=== PATIENT | male | born 1965 | race Caucasian/White ===

== ENCOUNTER 2019-04-28 14:34 | Outpatient (REF) | payer BC, SELFPAY ==
[2019-04-28 19:33] LABS: Uric Acid 3.2 mg/dL (3.5-7.2)
[2019-04-28 20:05] LABS: ESR 4 mm/hr (1-20)
[2019-04-30 09:04] LABS: CRP, High Sensitivity 7.07 mg/L (See Note)
== END 2019-04-28 14:54 ==
LOC: NCHCN 14:34
PROVIDERS: PCP Nurse Practitioner; Visit Provider Nurse Practitioner
DX: M25.522 Pain in left elbow (principal)
CPT/HCPCS: 85652; 86141; 84550

== ENCOUNTER 2019-10-29 08:16 | Outpatient (REF) | payer MEDICAID, SELFPAY ==
[2019-10-29 11:11] LABS: ALT 25 U/L (16-63); AST 23 U/L (15-37); Albumin 4.1 g/dL (3.4-5.0); Alkaline Phosphatase 73 U/L (46-116); Anion Gap 9.9 mmol/L (3-11); BUN 15 mg/dL (7-18); Bilirubin, Total 0.4 mg/dL (0.2-1.0); CO2 24.1 mmol/L (21.0-32.0); CREATININE 0.84 mg/dL (0.70-1.30); Calcium 9.4 mg/dL (8.5-10.1); Calculated LDL 163 mg/dL (<100); Chloride 104 mmol/L (98-107); Cholesterol 222 mg/dL (<200); Glucose 102 mg/dL (74-106); HDL Cholesterol 40 mg/dL (40-60); Potassium 4.6 mmol/L (3.5-5.1); Sodium 138 mmol/L (136-145); Total Protein 6.5 g/dL (6.4-8.2); Triglyceride 96 mg/dL (<150)
== END 2019-10-29 08:36 ==
LOC: NCHCN 08:16
PROVIDERS: PCP Nurse Practitioner; Visit Provider Nurse Practitioner
DX: I10 Essential (primary) hypertension (principal)
CPT/HCPCS: 80053; 80061

== ENCOUNTER 2020-12-29 12:08 | Outpatient (REF) | payer MEDICAID, SELFPAY ==
[2020-12-29 14:28] LABS: ALT 40 U/L (16-63); AST 31 U/L (15-37); Alkaline Phosphatase 99 U/L (46-116); Anion Gap 10.5 mmol/L (3-11); BUN 18 mg/dL (7-18); Bilirubin, Total 0.4 mg/dL (0.2-1.0); CO2 26.5 mmol/L (21.0-32.0); CREATININE 0.7 mg/dL (0.70-1.30); Calcium 9.4 mg/dL (8.5-10.1); Calculated LDL 104 mg/dL (<100); Chloride 102 mmol/L (98-107); Cholesterol 169 mg/dL (<200); Glucose 103 mg/dL (74-106); HDL Cholesterol 43 mg/dL (40-60); Potassium 4.7 mmol/L (3.5-5.1); Sodium 139 mmol/L (136-145); Total Protein 6.6 g/dL (6.4-8.2); Triglyceride 110 mg/dL (<150)
== END 2020-12-29 12:09 | disposition home or self-care (01) ==
LOC: NCHCN 12:08
PROVIDERS: PCP Nurse Practitioner; Visit Provider Family Medicine
DX: I10 Essential (primary) hypertension (principal); E78.5 Hyperlipidemia, unspecified
CPT/HCPCS: 80053; 80061

== ENCOUNTER → 2021-08-11 01:06 | Outpatient (CLI) | payer MEDICAID, SELFPAY ==
--- NOTE | 2021-08-11 13:00 | DI.CTLCSR_ITS ---
Exam(s) CT CHEST LUNG CANCER SCREEN EXAM: CT CHEST LUNG CANCER SCREEN CLINICAL HISTORY: SMOKING GREATER THAN 40 PACK YEARS, F17.210,screening for lung ca TECHNIQUE: CT examination of the chest was performed utilizing low-dose lung cancer screening protoc ol. COMPARISON: No exams were available for comparison FINDINGS: Images obtained through the upper abdomen show unremarkable appearance of visualized portions of the liver and spleen. There is no mediastinal or hilar adenopathy. Mediastinal vascular structures appear intact by noncon trast criteria. Tracheobronchial tree appears intact. No pleural effusion or pleural-based mass. There appear to be mild diffuse central lobular pulmonary emphysematous changes and there are periphe ral reticular radiodensities seen predominantly in the lung apices. No suspicious pulmonary nodule i dentified.. IMPRESSION: Lung RADS Cat 1 - Negative: No nodules and definitely benign nodules Continue annual screening with LDCT in 12 months. Lung-RADS 1.0 CATEGORIES: Category 0 - Prior chest CT exam(s) being located for comparison. Category 1 - Annual screening in 12 months. No nodules or definitely benign nodules. Category 2 - Annual screening in 12 months. Benign appearance. Nodules with low likelihood of becomin g active cancer. Category 3 - 6-month follow-up. Probably benign. Short-term follow-up suggested. Nodules with low lik elihood of becoming active cancer. Category 4A - 3-month follow-up and CT/PET if >8 mm in size. Suspicious finding. Findings which requi re additional testing. Category 4B - Findings which require additional testing and tissue sampling. Suspicious finding. Category 4X - Category 3 or 4 nodules with additional features or imaging findings that increases the suspicion of malignancy. Modifier S- Potentially clinically significant finding. (Non lung cancer) RADIATION DOSE DELIVERED: 88.94mGy.cm Total DLP !Error CTDIvol 88.94mGy.cm Total DLP !Error CTDIvol RADIATION OPTIMIZATION: All CT scans at this facility use at least one of these dose optimization te chniques: automated exposure control; mA and/or kV adjustment per patient size (includes targeted exa ms where dose is matched to clinical indication); or iterative reconstruction.
== END ==
PROVIDERS: PCP Nurse Practitioner; Visit Provider Nurse Practitioner Family
DX: F17.200 Nicotine dependence, unspecified, uncomplicated (principal); Z13.89 Encounter for screening for other disorder
CPT/HCPCS: 71271

== ENCOUNTER 2022-04-12 15:32 | Outpatient (REF) | payer MEDICAID, SELFPAY ==
[2022-04-12 15:30] LABS: Abs Immature Grans 0.09 10^3/uL (0.0-0.06); Absolute Eosinophil Count 0.53 10^3/uL (0.0-0.7); Absolute Neutrophil Count 8.95 10^3/uL (1.2-6.7); Basophils % 0.8; Eosinophils % 4.1; HCT 46.9 % (40.0-50.0); HGB 15.5 g/dL (13.5-17.5); Immature Grans % 0.7; Lymphocytes % 19.1; MCH 28.9 pg (27.0-33.0); MCV 88 fL (80-95); MPV 10.2 fL (8.0-11.0); Monocytes % 6.5; Neutrophils % 68.8; Platelet Count 461 10^3/uL (130-400); RBC 5.36 10^6/uL (4.36-5.78); RDW 12.9 % (11.8-14.1); RDW-SD 41.3 fL; WBC 13.01 10^3/uL (4.4-10.8)
[2022-04-12 15:33] LABS: Absolute Lymphocyte Count 2.48 10^3/uL (1.2-3.4); Absolute Monocyte Count 0.85 10^3/uL (0.1-0.8)
[2022-04-12 15:44] LABS: ALT 33 U/L (16-63); AST 30 U/L (15-37); Albumin 4.3 g/dL (3.4-5.0); Alkaline Phosphatase 119 U/L (46-116); Anion Gap 8.4 mmol/L (3-11); BUN 15 mg/dL (7-18); Bilirubin, Total 0.4 mg/dL (0.2-1.0); CO2 29.6 mmol/L (21.0-32.0); CREATININE 0.7 mg/dL (0.70-1.30); Calcium 9.4 mg/dL (8.5-10.1); Calculated LDL 100 mg/dL (<100); Chloride 101 mmol/L (98-107); Cholesterol 184 mg/dL (<200); Glucose 106 mg/dL (74-106); HDL Cholesterol 47 mg/dL (40-60); Potassium 4.2 mmol/L (3.5-5.1); Sodium 139 mmol/L (136-145); Total Protein 7.4 g/dL (6.4-8.2); Triglyceride 188 mg/dL (<150)
== END 2022-04-12 15:33 | disposition home or self-care (01) ==
LOC: NCHCN 15:32
PROVIDERS: PCP Nurse Practitioner; Visit Provider Nurse Practitioner Family
DX: Z00.00 Encounter for general adult medical examination without abnormal findings (principal)
CPT/HCPCS: 80053; 80061; 85025

== ENCOUNTER 2022-11-03 10:47 | Outpatient (CLI) | payer MEDICAID, SELFPAY ==
--- NOTE | 2022-11-03 08:45 | DI.RAD_ITS ---
Exam(s) XR FOOT RT COMPLETE EXAM: XR FOOT RT COMPLETE CLINICAL HISTORY: RT FOOT PAIN, M79.671, DENIES INJURY, DIFFUSE ECCHYMOSIS, MOST PAINFUL. TECHNIQUE: 2D digital imaging was performed. Three views. COMPARISON: No exams were available for comparison FINDINGS: BONES: No acute fracture is present. No bony destructive lesion is seen. Plantar calcaneal spur. JOINTS: No dislocation present. SOFT TISSUE: Swelling. No foreign body. IMPRESSION: Soft tissue swelling. No bony abnormality. DATA REPOSITORY: RADIATION DOSE DELIVERED:
== END 2022-11-03 11:07 ==
LOC: DI 10:47
PROVIDERS: PCP Nurse Practitioner Family; Visit Provider Physician Assistant Medical
DX: M79.671 Pain in right foot (principal); R22.41 Localized swelling, mass and lump, right lower limb
CPT/HCPCS: 73630

== ENCOUNTER → 2023-01-15 01:58 | Outpatient (CLI) | payer MEDICAID, SELFPAY ==
--- NOTE | 2023-01-15 | DI.CTLCSR_ITS ---
Exam(s) CT CHEST LUNG CANCER SCREEN EXAM: CT CHEST LUNG CANCER SCREEN CLINICAL HISTORY: SMOKING GREATER THAN 40 PK YEARS F17.210 TECHNIQUE: Imaging Protocol: Axial computed tomography images with coronal and sagittal reformatted images were created and reviewed. Low dose screening protocol. COMPARISON: CT CT CHEST LUNG CANCER SCREEN from 08/11/2021 FINDINGS: Tracheobronchial tree: No bronchiectasis or mucus plugging.. Mediastinum and Andria: No dominant adenopathy or fluid collection. Pulmonary parenchyma: No consolidation or dominant measurable mass. Mild emphysematous changes great er at the lung apices.. Lung Nodules: Calcified nodule medial right lower lobe. Tiny scattered peripheral nodules right uppe r and lower lobes. Pleura: No effusion. No pneumothorax. Heart: The heart is not dilated. Minimal coronary artery calcifications are seen. Aorta: Thoracic aorta non-dilated. Upper abdomen: Unremarkable. Bones: Unremarkable for age. Soft Tissues: Unremarkable. IMPRESSION: No suspicious pulmonary nodules. Lung RADS Cat 2 - Benign Appearance / Behavior: Nodules with a very low likelihood of becoming a clin ically active cancer due to size or lack of growth Lung-RADS 1.0 CATEGORIES: Category 0 - Prior chest CT exam(s) being located for comparison. Category 1 - Annual screening in 12 months. No nodules or definitely benign nodules. Category 2 - Annual screening in 12 months. Benign appearance. Nodules with low likelihood of becomin g active cancer. Category 3 - 6-month follow-up. Probably benign. Short-term follow-up suggested. Nodules with low lik elihood of becoming active cancer. Category 4A - 3-month follow-up and CT/PET if >8 mm in size. Suspicious finding. Findings which requi re additional testing. Category 4B - Findings which require additional testing and tissue sampling. Category 4X - Category 3 or 4 nodules with additional features or imaging findings that increases the suspicion of malignancy. Modifier S- Potentially clinically significant findings (non lung cancer) RADIATION DOSE DELIVERED: 85.74mGy.cm Total DLP DATA REPOSITORY: All CT scans at this facility are submitted to the National Radiology Data Registry (NRDR) Dose Index Registry (DIR) with the [employer] (ACR). RADIATION OPTIMIZATION: All CT scans at this facility use at least one of these dose optimization te chniques: automated exposure control; mA and/or kV adjustment per patient size (includes targeted exa ms where dose is matched to clinical indication); or iterative reconstruction.
== END ==
PROVIDERS: PCP Nurse Practitioner Family; Visit Provider Nurse Practitioner Family
DX: F17.210 Nicotine dependence, cigarettes, uncomplicated (principal); Z12.2 Encounter for screening for malignant neoplasm of respiratory organs
CPT/HCPCS: 71271

== ENCOUNTER 2023-01-16 16:41 | Outpatient (REF) | payer MEDICAID, SELFPAY ==
[2023-01-16 17:30] LABS: Abs Immature Grans 0.03 10^3/uL (0.0-0.06); Absolute Basophil Count 0.12 10^3/uL (0.0-0.2); Absolute Eosinophil Count 0.55 10^3/uL (0.0-0.7); Absolute Lymphocyte Count 2.06 10^3/uL (1.2-3.4); Absolute Monocyte Count 0.62 10^3/uL (0.1-0.8); Absolute Neutrophil Count 5.66 10^3/uL (1.2-6.7); Basophils % 1.3; Eosinophils % 6.1; HCT 43.9 % (40.0-50.0); HGB 14.7 g/dL (13.5-17.5); Immature Grans % 0.3; Lymphocytes % 22.8; MCH 28.8 pg (27.0-33.0); MCHC 33.5 % (32.0-36.0); MCV 86 fL (80-95); MPV 10.2 fL (8.0-11.0); Monocytes % 6.9; Neutrophils % 62.6; Platelet Count 368 10^3/uL (130-400); RBC 5.11 10^6/uL (4.36-5.78); RDW-SD 40.9 fL; WBC 9.04 10^3/uL (4.4-10.8)
[2023-01-16 17:42] LABS: BUN 18 mg/dL (7-18); CREATININE 0.7 mg/dL (0.70-1.30); Calcium 9.8 mg/dL (8.5-10.1); Cholesterol 163 mg/dL (<200); Estimated GFR 108.82 (mL/min/1.73m2); Glucose 119 mg/dL (74-106); HDL Cholesterol 46 mg/dL (40-60); Triglyceride 172 mg/dL (<150)
[2023-01-16 17:43] LABS: ALT 41 U/L (16-63); AST 33 U/L (15-37); Albumin 4.2 g/dL (3.4-5.0); Alkaline Phosphatase 94 U/L (46-116); Anion Gap 10.5 mmol/L (3-11); Bilirubin, Total 0.6 mg/dL (0.2-1.0); CO2 24.5 mmol/L (21.0-32.0); Calculated LDL 83 mg/dL (<100); Chloride 100 mmol/L (98-107); Potassium 3.9 mmol/L (3.5-5.1); Sodium 135 mmol/L (136-145); Total Protein 6.7 g/dL (6.4-8.2)
[2023-01-17 19:18] LABS: PSA, Screening 0.7 ng/mL (<=3.5)
== END 2023-01-16 16:42 | disposition home or self-care (01) ==
LOC: NCHCN 16:41
PROVIDERS: PCP Nurse Practitioner Family; Visit Provider Nurse Practitioner Family
DX: I10 Essential (primary) hypertension (principal); F10.10 Alcohol abuse, uncomplicated; F17.210 Nicotine dependence, cigarettes, uncomplicated; Z12.5 Encounter for screening for malignant neoplasm of prostate; E78.5 Hyperlipidemia, unspecified
CPT/HCPCS: 80053; 80061; 84153; 85025

== ENCOUNTER 2024-01-23 16:18 | Outpatient (REF) | payer BC, SELFPAY ==
--- OUTSIDE RECORDS SUMMARY | 2024-01-23 16:21 | XMS_ITS | Encounter Summary ---
Author Organization [facility] Address [address] [place] [id number] Care Team Providers Care Otr Refrigerated Cdl Truck Driver Name Role Phone Unavailable Primary Care Provider Unavailabl e Encounter Details Date Type Department Care Team (Late st Contact Info) Description 01/17/2023 Lab Requisition [facility] Pathology & Laboratory Medicine - [place] [facility] [address] [place] [address] Outr Resulting Lab, Provider Social History Tobacco Use Types Packs/Day Years Used Date Smoking Tobacco: Never Assessed Interpersonal Safety Answer Date Record ed Physically Hurt Never 03/23/2020 Verbally Threaten Not on file 03/23/2020 Sex and Gender Information Value Date Recorded Sex Assigned at Not on file Gender Identity Not on file Sexual Orientation Not on file documented as of this encounter Plan of Treatment Not on file documented as of this encounter Procedures Procedure Name Priority Date/Time Associated Diagnosis Comments PSA TOTAL, DIAGNOSTIC Routine 01/16/2023 9:55 EDT documented in this encounter Results * PSA TOTAL, DIAGNOSTIC (01/16/2023 9:55 EDT) PSA 0.7 <=3.5 ng/mL 01/17/2023 19:14 EDT [facility] Blood VENOUS BLOOD / Unknown 01/16/2023 9:55 EDT 01/17/2023 17:25 EDT Narrative [facility] - 01/17/2023 19:14 EDT NOTE: Serum PSA concentration should not be interpreted as absolute evidence for the presence or absence of malignant disease. Assayed on Siemens ADVIA Centaur XPT using chemiluminescent technology.??Values obtained by using different assay methods cannot be used interchangeably. Provider Outr Resulting Lab CHEMISTRY & BLOOD GAS ORDERABLES [facility] [address] [place] [address] documented in this encounter Visit Diagnoses Not on filedocumented in this encounter
--- OUTSIDE RECORDS SUMMARY | 2024-01-23 16:21 | XMS_ITS | Referral Summary ---
Author Organization [facility] Address [address] [place] [address] Care Team Providers Care Marketing Representative Name Role Phone Unavailable Primary Care Provider Unavailabl e Social History Tobacco Use Types Packs/Day Years Used Date Smoking Tobacco: Never Assessed Interpersonal Safety Answer Date Record ed Physically Hurt Never 03/23/2020 Verbally Threaten Not on file 03/23/2020 Sex and Gender Information Value Date Recorded Sex Assigned at Not on file Gender Identity Not on file Sexual Orientation Not on file Plan of Treatment Not on file
--- OUTSIDE RECORDS SUMMARY | 2024-01-23 16:21 | XMS_ITS | Encounter Summary ---
Author Organization [facility] [place] [address] Care Team Providers Care Tool Maintenance Worker Name Role Phone Cinthya Quevedo APRN Primary Care Provider [phone]- [phone] Reason for Visit * Reason Comments Skin Check Encounter Details Date Type Department Care Team (Late st Contact Info) Description 07/17/2012 1:45 PM EDT Office Visit Dermatology [address] [place], [place] [id number] Mark Flynn MD [address], [place] [address] Psoriasis (Primary Dx) Social History Tobacco Use Types Packs/Day Years Used Date Smoking Tobacco: Every Day Cigarettes Sex and Gender Information Value Date Recorded Sex Assigned at Not on file Gender Identity Not on file Sexual Orientation Not on file documented as of this encounter Progress Notes * Mark Flynn MD - 07/17/2012 2:18 PM EDT Problem: Skin rash. 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 He moved to this area from [place] at that time with his young daughter. He says the rash is getting worse over time, quite itchy, lots of scaling, and driving him crazy. He has been given topical creams such as triamcinolone, but these have not helped. He states that he is not aware of any family history of psoriasis. The patient is currently using Nizoral 2% shampoo, betamethasone dipropionate lotion for the scalp, and triamcinolone 0.5% cream; he also has ketoconazole cream. While in [place], he was told that he had jock itch, but no topical cream therapy that he was given there really ever worked. Physical examination reveals a pleasant, 46-year-old gentleman with brown eyes and type III/IV Abbott pigmentation who has small but very inflammatory plaques of psoriasis adjacent to the elbows, just below his knees, and present towards his scalp. He also has some inverse involvement on the inguinal folds and on the left shaft of the penis. He has no pitting of the nails. Assessment and Plan: Psoriasis, inverse and classic a. Discussed diagnosis at length and treatment options including phototherapy. b. The patient works in [place], and phototherapy at [facility] would really not be feasible or practical for the patient. c. Discussed the option of methotrexate and also mentioned in passing biologics. We decided to begin methotrexate taking six of the 2.5-mg tablets p.o. each week (15 mg); dispensed #30 with zero refills. d. Return to the clinic in a month for repeat check and with repeat methotrexate labs two or three days prior to that visit. e. Answered multiple patient questions about psoriasis and discussed how potentially this summer with some natural sun tanning we may be able to taper him down and off methotrexate. Discussed need to limit alcohol intake while on methotrexate. f. Patient given a prescription for folate 1 mg to be taken one p.o. daily every day except day of methotrexate dosing; #90 dispensed with three refills. Copy: Cinthya Quevedo A.P.R.N. documented in this encounter Plan of Treatment Not on file documented as of this encounter Visit Diagnoses Diagnosis Psoriasis- Primary Other psoriasis documented in this encounter Care Teams Tool Maintenance Worker Relationship Specialty Start Date End Date Cinthya Quevedo APRN PCP - General 07/05/12 06/25/16 documented as of this encounter
--- OUTSIDE RECORDS SUMMARY | 2024-01-23 16:21 | XMS_ITS | Encounter Summary ---
Author Organization [facility] [place] [address] Care Team Providers Care Orthopedic Radiologic Technologist Name Role Phone Cinthya Quevedo APRN Primary Care Provider [phone]- [phone] Reason for Visit * Reason Comments Follow-up Encounter Details Date Type Department Care Team (Late st Contact Info) Description 08/14/2012 4:30 PM EDT Office Visit Dermatology [address] [place] [address] [address] [place], [place] [id number] Mark Flynn MD [address], [place] [address] Psoriasis (Primary Dx) Social History Tobacco Use Types Packs/Day Years Used Date Smoking Tobacco: Every Day Cigarettes Sex and Gender Information Value Date Recorded Sex Assigned at Not on file Gender Identity Not on file Sexual Orientation Not on file documented as of this encounter Progress Notes * Mark Flynn MD - 08/14/2012 4:53 PM EDT Problem is followup psoriasis status post one month of methotrexate. Neftali follows up and has been tolerating methotrexate well, but he has seen a little bit of a decrease in itching, perhaps a 15 to 20% decrease, and perhaps slight decrease of hyperkeratosis, but otherwise there has not been much improvement beyond that. Physical examination reveals a pleasant 46-year-old gentleman who indeed still has some inflammatory plaques of psoriasis adjacent to his elbows, just below his knees, and present in his scalp. He continues to have inverse involvement along the inguinal folds and along the left shaft of the penis. Assessment and Plan: Psoriasis, inverse and classic. a. Continue methotrexate current dosing, 2.5 mg taking six of these p.o. q.week, 15 mg. #30 were dispensed with one refill. b. Methotrexate labs from 08/12 show elevated cholesterol to 207 and triglycerides to 377. Repeat labs again in one month. Return to clinic in one month, and next labs I will request that they be obtained as fasting labs. c. If methotrexate is not efficacious after two or three months of trial, would recommend that we consider biologics. The patient works in [place], and solar therapy at [facility] would really not be feasible or practical for the patient. d. Continue folate 1 mg p.o. q.day every day except the day of methotrexate dosing. Was given #90 with three refills on 07/17/2012. COPY: Cinthya Quevedo A.P.R.N. documented in this encounter Plan of Treatment Not on file documented as of this encounter Visit Diagnoses Diagnosis Psoriasis- Primary Other psoriasis documented in this encounter Care Teams Orthopedic Radiologic Technologist Relationship Specialty Start Date End Date Cinthya Quevedo APRN PCP - General 07/05/12 06/25/16 documented as of this encounter
--- OUTSIDE RECORDS SUMMARY | 2024-01-23 16:21 | XMS_ITS | Clinical Summary ---
Author Organization [facility] Address [facility] [place] [address] Care Team Providers Care Computer Methods Analyst Name Role Phone Unknown Primary Care Provider Unavailabl e Allergies No known active allergies Medications Medication Sig Dispensed Refills Start Date End Date Status Ketoconazole (NIZORAL A-D) 1 % Sham Apply topically every 3 days. Active folic acid (FOLVITE) 1 mg tablet Take 1 mg by mouth daily. Active methotrexate 2.5 mg tablet Take 15 mg by mouth once a week. Can take without regard to food. Call clinic before/prior to starting medication/script. Active Active Problems Problem Noted Date Diagnosed Date Psoriasis 07/17/2012 Social History Tobacco Use Types Packs/Day Years Used Date Smoking Tobacco: Every Day Cigarettes Sex and Gender Information Value Date Recorded Sex Assigned at Not on file Gender Identity Not on file Sexual Orientation Not on file Plan of Treatment Health Maintenance Due Date Last Done Comments CT Colonography 1967 Colonoscopy 1967 Colorectal Cancer Screening 1967 FIT DNA 1967 FIT 1967 Sigmoidoscopy (10 year) with FIT yearly 1967 Sigmoidoscopy 1967 HIV screen 08/15/1985 Hepatitis C Screening 08/15/1985 Lipid Screening 08/15/1985 Hepatitis B vaccine (0-59 yrs) (1) 08/15/1986 Tetanus/Diphtheria/Pertussis Vaccines (1 - Tdap) 08/15 Zoster vaccine (1 of 2) 08/15/2017 Advance Directive 08/15/2022 Covid-19 Vaccine (1 - 2022-24 season) 2023 Influenza (Flu) vaccine (1 o f 1 - Influenza standard series) 12/30/2023 Care Teams Computer Methods Analyst Relationship Specialty Start Date End Date Unknown None PCP - General 06/26/16
--- OUTSIDE RECORDS SUMMARY | 2024-01-23 16:21 | XMS_ITS | Clinical Summary ---
Author Organization [facility] Address [address] [place] [address] Care Team Providers Care Vacuum Form Operator Name Role Phone Unavailable Primary Care Provider [...] Health Maintenance Due Date Last Done Comments Hepatitis C Screen 1965 Hepatitis B Vaccine (1 of 3 - 19+ 3-dose series) 08/15 COVID-19 Vaccine (2022- season) 2022
--- OUTSIDE RECORDS SUMMARY | 2024-01-23 16:21 | XMS_ITS | Encounter Summary ---
Author Organization [facility] Address [address] [place] [address] Care Team Providers Care Sales Order Administrator Name Role Phone Unavailable Primary Care Provider Unavailabl e Encounter Details Date Type Department Care Team (Late st Contact Info) Description 04/29/2019 Lab Requisition [facility] Pathology & Laboratory Medicine - [facility] [address] [place] [address] Unknown, Provider, Social History Tobacco Use Types Packs/Day Years Used Date Smoking Tobacco: Never Assessed Sex and Gender Information Value Date Recorded Sex Assigned at Not on file Gender Identity Not on file Sexual Orientation Not on file documented as of this encounter Plan of Treatment Not on file documented as of this encounter Procedures Procedure Name Priority Date/Time Associated Diagnosis Comments HIGH SENSITIVITY C-REACTIVE PROTEIN (CARDIOVASCULAR DISEASE) Routine 04/28/2019 14:20 EST documented in this encounter Results * HIGH SENSITIVITY C-REACTIVE PROTEIN (CARDIOVASCULAR DISEASE) (04/28/2019 14:20 EST) High Sensitivity CRP 7.07 See Note mg/L 04/30/2019 8:59 EST [facility] Comment: Reference Range: ??Source: The [place] Clinical Practice Recommendations, 2003 ??Low Risk: ? <1.0 mg/L ??Average Risk: ?? 1.0 - 3.0 mg/L ??High Risk: ?>3.0 mg/L ??Indeterminate*: >10.0 mg/L ??*May be an indication of another source of inflammation or infection Blood VENOUS BLOOD / Unknown 04/28/2019 14:20 EST 04/30/2019 8:37 EST Provider Unknown CHEMISTRY & BLOOD GA S ORDERABLES [facility] [address] [place] [address] documented in this encounter Visit Diagnoses Not on filedocumented in this encounter
[2024-01-23 20:16] LABS: ALT 34 U/L (16-63); AST 33 U/L (15-37); Albumin 3.9 g/dL (3.4-5.0); Alkaline Phosphatase 99 U/L (46-116); Anion Gap 3.2 mmol/L (3-11); BUN 13 mg/dL (7-18); Bilirubin, Total 0.49 mg/dL (0.2-1.0); CO2 28.8 mmol/L (21.0-32.0); CREATININE 0.6 mg/dL (0.70-1.30); Calcium 9.3 mg/dL (8.5-10.1); Chloride 105 mmol/L (98-107); Cholesterol 171 mg/dL (<200); Estimated GFR 113.29 (mL/min/1.73m2); Glucose 90 mg/dL (74-106); HDL Cholesterol 38 mg/dL (40-60); Potassium 4.6 mmol/L (3.5-5.1); Sodium 137 mmol/L (136-145); Total Protein 7.1 g/dL (6.4-8.2); Triglyceride 414 mg/dL (<150)
[2024-01-23 20:37] LABS: LDL CHOLESTEROL 88 mg/dL (<100)
== END 2024-01-23 16:19 | disposition home or self-care (01) ==
LOC: NCHCN 16:18
PROVIDERS: PCP Nurse Practitioner Family; Visit Provider Nurse Practitioner Family
DX: Z00.00 Encounter for general adult medical examination without abnormal findings (principal)
CPT/HCPCS: 80053; 80061; 83721

== ENCOUNTER 2025-01-27 18:08 | Outpatient (REF) | payer BC, SELFPAY ==
[2025-01-27 19:28] LABS: ALT 37 U/L (16-63); AST 32 U/L (15-37); Albumin 4.1 g/dL (3.4-5.0); Alkaline Phosphatase 95 U/L (46-116); Anion Gap 9.3 mmol/L (3-11); BUN 11 mg/dL (7-18); Bilirubin, Total 0.6 mg/dL (0.2-1.0); CO2 27.7 mmol/L (21.0-32.0); Calcium 9.1 mg/dL (8.5-10.1); Chloride 101 mmol/L (98-107); Cholesterol 171 mg/dL (<200); Estimated GFR 112.59 (mL/min/1.73m2); Glucose 114 mg/dL (74-106); Potassium 4.4 mmol/L (3.5-5.1); Sodium 138 mmol/L (136-145); Total Protein 6.6 g/dL (6.4-8.2); Triglyceride 143 mg/dL (<150)
[2025-01-28 04:58] LABS: Calculated LDL 97 mg/dL (<100); HDL Cholesterol 46 mg/dL (>or=40)
== END 2025-01-27 18:09 | disposition home or self-care (01) ==
LOC: NCHCN 18:08
PROVIDERS: PCP Nurse Practitioner Family; Visit Provider Nurse Practitioner Family
DX: Z00.00 Encounter for general adult medical examination without abnormal findings (principal)
CPT/HCPCS: 80053; 80061